=== PATIENT | female | born 1965 | race Caucasian/White ===

== ENCOUNTER 2018-11-14 12:36 | Emergency (ER) | payer BC, MEDICARE ==
[~2018-11-14] VITALS: Ht 162.6 cm; Wt 54.0 kg
[~2018-11-14 12:36] MED LIST: AMBIEN 10 MG TA10 MG; AMBIEN 10 MG TA10 MG PO; ANTIVERT25 MG PO; BENADRYL25 MG PO; BUTALB-ACETAMI1 EACH PO; CLONAZEPAM PO; DIFLUCAN100 MG PO; DILAUDID 4 MG TA4 M1 PO; DILAUDID2 M1 INTRATHECA; MEDROLDOSEPACK PO; MULTIVITAMINS1 EAC7; OXYCODONE HCL15 MG; PAIN PUMP; PERCOCET 5-3251 EACH PO; PROAIR HFA8.5 GM INH; REMERON15 MG PO; ROPIVACAINE INTRATHECA; ROXICODONE15 MG PO; SAVELLA1 EACH PO; SERTRALINE HCL100 MG PO; SODIUM CHLORIDE INTRATHECA; TESSALON PERLE100 MG PO; XANAX XR1 MG; XANAX XR1 MG PO; ZPAK PO
[2018-11-14] MEDS ORDERED: LYRICA 75 MG CA75 MG PO (13:01)
[2018-11-14] MEDS ORDERED: NUCYNTA100 MG PO (13:02)
[2018-11-14] MEDS ORDERED: NUCYNTA ER150 MG PO (13:02)
[2018-11-14] MEDS ORDERED: BACLOFEN 10MG T10 MG PO (13:03)
[2018-11-14] MEDS ORDERED: URECHOLINE 10 M10 M1 PO (13:03)
[2018-11-14] MEDS ORDERED: LEXAPRO 10 MG T10 M1 PO (13:04)
[2018-11-14 13:26] LABS: HEMATOCRIT 36.4 % (37.0-47.0); MPV 7.7 fl. (7.2-11.1); NUCLEATED RBCS 0 /100WBC; PLATELET COUNT* 250 thou/uL (150-400); RDW-CV 14.6 % (10.5-14.5); WBC 5.8 thou/uL (4.0-11.0)
[2018-11-14 13:40] LABS: ALBUMIN 3.8 g/dL (3.4-5.0); CREATININE 0.9 mg/dL (0.6-1.3); POTASSIUM 3.7 mmol/L (3.5-5.1); TOTAL BILIRUBIN 0.5 mg/dL (<0.1-1.0); TOTAL PROTEIN 6.9 g/dL (6.4-8.2)
[2018-11-14 13:53] LABS: ABSOLUTE BASOPHILS 0.1 thou/uL (0.0-0.2); ABSOLUTE LYMPHOCYTES 0.2 thou/uL (0.8-5.3); ABSOLUTE MONOCYTES 0.1 thou/uL (0.0-1.2); ABSOLUTE NEUTROPHILS 5.5 thou/uL (1.6-8.1); PLATELET ESTIMATE ADEQUATE
[2018-11-14 14:00] LABS: URINE BILIRUBIN NEGATIVE (Negative); URINE BLOOD TRACE (Negative); URINE CLARITY CLEAR; URINE COLOR YELLOW; URINE GLUCOSE-RANDOM NEGATIVE (Negative); URINE KETONES TRACE (Negative); URINE LEUKOCYTES-REFLEX NEGATIVE (Negative); URINE NITRITE-REFLEX NEGATIVE (Negative); URINE PROTEIN NEGATIVE (Negative); URINE SPECIFIC GRAVITY 1.025 (1.005-1.030); URINE UROBILINOGEN 0.2 E.U./dl (0.2-1.0)
[2018-11-14 14:07] LABS: AMP/METHAMP POSITIVE (Negative); BARBITURATES Negative (Negative); BENZODIAZEPINES POSITIVE (Negative); COCAINE Negative (Negative); METHADONE Negative (Negative); OPIATES Negative (Negative); PCP Negative (Negative); THC POSITIVE (Negative)
[2018-11-14] MEDS ORDERED: KEFLEX500 M1 PO (14:10)
[2018-11-14] MEDS ORDERED: BACTRIM DS TAB1 EACH PO (14:10)
[2018-11-14 14:40] VITALS: BP 146/91
== END 2018-11-14 14:34 | disposition home or self-care (01) ==
LOC: M.ERS 12:36
PROVIDERS: Physician Assistant
DX: F15.129 Other stimulant abuse with intoxication, unspecified (principal); R21 Rash and other nonspecific skin eruption; F17.200 Nicotine dependence, unspecified, uncomplicated; M32.9 Systemic lupus erythematosus, unspecified; G43.909 Migraine, unspecified, not intractable, without status migrainosus; M41.9 Scoliosis, unspecified; Z88.8 Allergy status to other drugs, medicaments and biological substances; Z88.5 Allergy status to narcotic agent; Z88.4 Allergy status to anesthetic agent; Z88.6 Allergy status to analgesic agent; Z88.0 Allergy status to penicillin; Z90.710 Acquired absence of both cervix and uterus

== ENCOUNTER 2021-02-19 10:16 | Emergency (ER) | payer BC, MEDICARE ==
[~2021-02-19] VITALS: Ht 162.6 cm; Wt 52.2 kg
[~2021-02-19 10:16] MED LIST changes: +BACLOFEN 10MG T10 MG PO; +BACTRIM DS TAB1 EACH PO; +KEFLEX500 M1 PO; +LEXAPRO 10 MG T10 M1 PO; +LYRICA 75 MG CA75 MG PO; +NUCYNTA ER150 MG PO; +NUCYNTA100 MG PO; +URECHOLINE 10 M10 M1 PO
[2021-02-19] MEDS ORDERED: BACLOFEN5 MG (10:29)
[2021-02-19] MEDS ORDERED: OXYCODONE HCL5 MG PO (10:29)
[2021-02-19] MEDS ORDERED: MORPHINE SULFAT15 M3 (10:30)
[2021-02-19 15:14] VITALS: BP 128/68
== END 2021-02-19 15:14 | disposition home or self-care (01) ==
LOC: M.ERS 10:16
DX: S06.0X1A Concussion with loss of consciousness of 30 minutes or less, initial encounter (principal); S01.01XA Laceration without foreign body of scalp, initial encounter; S16.1XXA Strain of muscle, fascia and tendon at neck level, initial encounter; G43.909 Migraine, unspecified, not intractable, without status migrainosus; F12.90 Cannabis use, unspecified, uncomplicated; Z88.5 Allergy status to narcotic agent; Z88.6 Allergy status to analgesic agent; Z88.0 Allergy status to penicillin; Z79.899 Other long term (current) drug therapy; W01.0XXA Fall on same level from slipping, tripping and stumbling without subsequent striking against object, initial encounter; Y93.89 Activity, other specified; Y92.89 Other specified places as the place of occurrence of the external cause; Y99.9 Unspecified external cause status